=== PATIENT | male | born 1990 | race Caucasian/White ===

== ENCOUNTER 2016-11-13 19:41 | Inpatient (IN) | payer OTHER ==
[2016-11-13 20:24] VITALS: BMI 17.8
--- NOTE | 2016-11-13 20:32 | HP ---
COWS - Scale Resting Pulse: 1= [place] 81-100 Sweatin=Flushed/Facial Moisture Restless Observation: 3= Extraneous Movement Pupil Size: 1= Pupils >than Normal Bone or Joint Aches: 4=Acute Joint/Muscle Pain Runny Nose/ Eye Tearin= Nasal Congestion GI Upset > 30mins: 1= Stomach Cramp Tremor Observation: 2= Slight Tremor Visible Yawning Observation: 0= None Anxiety or Irritability: 2=Irritable/Anxious Goose Flesh Skin: 0=Smooth Skin COWS Score: 17 CIWA Score - CIWA Score Nausea/Vomitin Muscle Tremors: 4-Moderate,w/Arms Extend Anxiety: 4-Mod. Anxious/Guarded Agitation: 4-Moderately Restless Paroxysmal Sweats: 3 Orientation: 1-Uncertain about Date Tacttile Disturbances: 0-None Auditory Disturbances: 0-None Visual Disturbances: 0-None Headache: 0-None Present CIWA-Ar Total Score: 19 Admission ROS BHS - HPI Chief Complaint: C/O WITHDRAWALS SX'S. SEEKING DETOX TXMENT Allergies/Adverse Reactions: Allergies Allergy/AdvReac Type Severity Reaction Status Date / Time No Known Allergies Allergy Verified 11/13/16 20:26 History of Present Illness: 26 Y.O. MALE WITH POLYSUBSTANCE ABUSE ADMITTED FOR DETOX TXMENT. HE IS CURRENTLY USING HEROIN, XANA, THC. REPORTS LONGEST CLEAN TIME IS 1 YEAR. HE HAS BEEN INFORMED HIS APPROX LOS WILL BE 7 DAYS . HE HAS AGREED TO COMPLETE. Exam Limitations: No Limitations - Ebola screening Have you traveled outside of the country in the last 21 days: No (N) Have you had contact with anyone from an Ebola affected area: No Have you been sick,other than usual withdrawal symptoms: No Do you have a fever: No - Review of Systems Constitutional: Chills, Loss of Appetite, Malaise, Night Sweats, Unintentional Wgt. Loss EENT: reports: Other (NASAL CONGESTION) Respiratory: reports: No Symptoms reported Cardiac: reports: No Symptoms Reported GI: reports: Nausea, Poor Appetite, Poor Fluid Intake, Abdominal cramping : reports: No Symptoms Reported Musculoskeletal: reports: Back Pain Integumentary: reports: Other (L HAND FX OF MIDDLE AND RING FINGER. PRESENTLY WITH SLIPNT AND CDD. WAS SEEN AND TREATED IN AN URGENT CARE. HAS F/U ON 12/08/16) Neuro: reports: No Symptoms reported Endocrine: reports: No Symptoms Reported Hematology: reports: No Symptoms Reported Psychiatric: reports: Anxious Other Systems: Reviewed and Negative Patient History - Patient Medical History Hx Anemia: No Hx Asthma: No Hx Chronic Obstructive Pulmonary Disease (COPD): No Hx Cancer: No Hx Cardiac Disorders: No Hx Congestive Heart Failure: No Hx Hypertension: No Hx Hypercholesterolemia: No Hx Pacemaker: No HX Cerebrovascular Accident: No Hx Seizures: No Hx Dementia: No Hx Diabetes: No Hx Gastrointestinal Disorders: Yes (IBS) Hx Liver Disease: No Hx Genitourinary Disorders: No Hx Sexually Transmitted Disorders: No Hx Renal Disease (ESRD): No Hx Thyroid Disease: No Hx Human Immunodeficiency Virus (HIV): No Hx Hepatitis C: No Hx Depression: No Hx Suicide Attempt: No Hx Bipolar Disorder: No Hx Schizophrenia: No Other Medical History: SCOLIOSIS - Patient Surgical History Past Surgical History: No - PPD History Previous Implant?: Yes Documented Results: Negative w/o proof Implanted On Prior [facility] Admission?: No PPD to be Administered?: Yes - Smoking Cessation Smoking history: Current every day smoker Have you smoked in the past 12 months: Yes Aproximately how many cigarettes per day: 20 Cigars Per Day: 0 Hx Chewing Tobacco Use: No Initiated information on smoking cessation: Yes 'Breaking Loose' booklet given: 11/13/16 - Substance & Tx. History Hx Alcohol Use: No Hx Substance Use: Yes Substance Use Type: Heroin, Marijuana, Opiates (OXY), Tranquilizers (XANAX) Hx Substance Use Treatment: Yes ([facility]) - Substances Abused HEROIN Route: Injection Frequency: Daily Amount used: 20 Age of first use: 23 Date of Last Use: 11/13/16 XANAX Route: Oral Frequency: 1-2 times per week Amount used: 2MG Age of first use: 18 Date of Last Use: 11/13/16 THC Route: Smoking Frequency: Daily Amount used: 3 JOINTS Age of first use: 16 Date of Last Use: 11/12/16 Family Disease History - Family Disease History Family Disease History: Other: Father (RECOVERING ETOH) Admission Physical Exam BHS - Vital Signs Vital Signs: Vital Signs - 24 hr 11/13/16 20:21 Temperature 97.7 F Pulse Rate 84 Respiratory 18 Rate Blood Pressure 119/66 - Physical General Appearance: Yes: Appropriately Dressed, Mild Distress, Tremorous, Anxious HEENTM: Yes: EOMI, Normocephalic, Normal Voice, ALEC, Pharynx Normal Respiratory: Yes: Chest Non-Tender, Lungs Clear, Normal Breath Sounds, No Respiratory Distress, No Accessory Muscle Use Neck: Yes: No masses,lesions,Nodules, Supple, Trachea in good position Breast: Yes: Breast Exam Deferred Cardiology: Yes: Regular Rhythm, Regular Rate, S1, S2 Abdominal: Yes: Normal Bowel Sounds, Non Tender, Flat, Soft Genitourinary: Yes: Within Normal Limits Back: Yes: Normal Inspection Musculoskeletal: Yes: full range of Motion, Gait Steady Extremities: Yes: Normal Capillary Refill, Normal Range of Motion, Non-Tender, Tremors Neurological: Yes: scientific research manager II-XII NML intact, Alert, Motor Strength 5/5 Integumentary: Yes: Normal Color, Warm, Moist Lymphatic: Yes: Within Normal Limits - Diagnostic (1) Opioid dependence with withdrawal Current Visit: Yes Status: Chronic (2) Sedative, hypnotic or anxiolytic dependence with withdrawal, uncomplicated Current Visit: Yes Status: Chronic (3) Cannabis dependence, uncomplicated Current Visit: Yes Status: Chronic (4) Nicotine dependence Current Visit: Yes Status: Chronic Qualifiers: Nicotine product type: cigarettes Substance use status: uncomplicated Qualified Code(s): F17.210 - Nicotine dependence, cigarettes, uncomplicated (5) IBS (irritable bowel syndrome) Current Visit: Yes Status: Chronic Qualifiers: Irritable bowel syndrome type: without diarrhea Qualified Code(s): K58.9 - Irritable bowel syndrome without diarrhea (6) Scoliosis Current Visit: Yes Status: Chronic Cleared for Admission [facility] - Detox or Rehab [facility] Level of Care: Medically Managed Detox Regimen/Protocol: Methadone/Valium [facility] Breath Alcohol Content Breath Alcohol Content: 0 Urine Drug Screen - Results Drug Screen Negative: No Urine Drug Screen Results: THC-Marijuana, OPI-Opiates, BZO-Benzodiazepines, OXY- Oxycodone
[2016-11-13] MEDS ORDERED: P-EPHED 60MG/TRIPROLIDI 2.5MG TABLET PO PRN (20:47)
[2016-11-13] MEDS ORDERED: guaiFENesin/D-METHORPHAN HB 10 ML UNIT-DOSE CUPS PO PRN (20:47)
[2016-11-13] MEDS ORDERED: METHADONE HCL 10 MG TABLET (FOR DETOX USE ONLY) PO ONE ×2 (20:47→23:00)
[2016-11-13] MEDS ORDERED: MAGNESIUM CITRATE 300 ML BOTTLE PO PRN (20:47)
[2016-11-13] MEDS ORDERED: NICOTINE POLACRILEX 2 MG GUM BC PRN (20:47)
[2016-11-13] MEDS ORDERED: ACETAMINOPHEN 325 MG TABLET (FP) PO PRN (20:47)
[2016-11-13] MEDS ORDERED: MAG HYDROX/AL HYDROX/SIMETH 30 ML UNIT-DOSE CUP PO PRN (20:47)
[2016-11-13] MEDS ORDERED: MAGNESIUM HYDROX 2400MG/30ML ORAL SUSPENSION 30 ML CUP PO PRN (20:47)
[2016-11-13] MEDS ORDERED: LOPERAMIDE HCL 2 MG CAPSULE PO PRN (20:47)
[2016-11-13] MEDS ORDERED: hydrOXYzine PAMOATE 50 MG CAPSULE (FP) PO PRN (20:47)
[2016-11-13] MEDS ORDERED: diazePAM 5 MG TABLET PO ONE (20:47)
[2016-11-13] MEDS ORDERED: MENTHOL/PHENOL 1 EACH UD MM PRN (20:47)
[2016-11-13] MEDS ORDERED: IBUPROFEN 400 MG TABLET (FP) PO PRN (20:47)
[2016-11-13] MEDS: diazePAM 5 MG TABLET PO SCH (21:54)
[2016-11-13] MEDS: THIAMINE HCL 100 MG TABLET (FP) PO SCH (21:56)
[2016-11-13] MEDS: NICOTINE 21 MG/24 HOURS TOPICAL PATCH TD SCH (22:00)
[2016-11-14] MEDS: diazePAM 5 MG TABLET PO SCH ×3 (06:11→22:26)
[2016-11-14] MEDS: diazePAM 5 MG TABLET PO PRN ×2 (08:45→17:32)
[2016-11-14 09:59] LABS: MCHC 33.8 g/dl (32.0-35.9); MEAN CELL VOLUME 88.7 fl (80-96); MEAN PLT VOLUME 7.7 fl (7.5-11.1); PLATELET COUNT 294 K/MM3 (134-434); RDW 13.4 % (11.9-15.9); WHITE BLOOD COUNT 7.7 K/mm3 (4.0-10.0)
[2016-11-14 10:00] LABS: ALBUMIN 3.9 g/dl (3.4-5.0); ANION GAP 7 (8-16); CO2 30 mmol/L (21-32); GLUCOSE,RANDOM 97 mg/dL (74-106)
[2016-11-14] MEDS ORDERED: METHADONE HCL 10 MG TABLET (FOR DETOX USE ONLY) PO SCH (10:00)
[2016-11-14 10:04] LABS: ALK PHOS 65 U/L (45-117); BILIRUBIN,TOTAL 0.3 mg/dL (0.2-1.0); CREATININE 0.9 mg/dL (0.7-1.3); SGOT/AST 13 U/L (15-37); SGPT/ALT 21 U/L (12-78); TOT PROT 6.5 g/dl (6.4-8.2)
[2016-11-14] MEDS: NICOTINE 21 MG/24 HOURS TOPICAL PATCH TD SCH (10:20)
[2016-11-14] MEDS: PRENATAL VITAMINS W/ FOLIC ACID TABLET (FP) PO SCH (10:20)
--- NOTE | 2016-11-14 10:26 | PN ---
[facility] CIWA - CIWA Score Nausea/Vomitin-Mild Nausea/No Vomiting Muscle Tremors: 4-Moderate,w/Arms Extend Anxiety: 4-Mod. Anxious/Guarded Agitation: 4-Moderately Restless Paroxysmal Sweats: 3 Orientation: 0-Oriented Tacttile Disturbances: 0-None Auditory Disturbances: 0-None Visual Disturbances: 0-None Headache: 0-None Present CIWA-Ar Total Score: 16 BHS COWS - Scale Resting Pulse: 1= [place] 81-100 Sweatin=Flushed/Facial Moisture Restless Observation: 1= Difficult to Sit Still Pupil Size: 1= Pupils >than Normal Bone or Joint Aches: 2= Severe Diffuse Aches Runny Nose/ Eye Tearin= Runny Nose/Eyes GI Upset > 30mins: 2= Nausea/Diarrhea Tremor Observation of Outstretched Hands: 2= Slight Tremor Visible Yawning Observation: 1= 1-2x During Session Anxiety or Irritability: 2=Irritable/Anxious Goose Flesh Skin: 0=Smooth Skin COWS Score: 16 S Progress Note (SOAP) Subjective: Anxiety,tremors,sweating,interrupted sleep,restless Objective: 11/14/16 10:27 Last Vital Signs Temp Pulse Resp BP Pulse Ox 97.4 F L 97 H 18 108/68 11/14/16 10:07 11/14/16 10:07 11/14/16 10:07 11/14/16 10:07 Laboratory Tests 11/14/16 11/14/16 07:00 07:00 WBC 7.7 RBC 4.48 Hgb 13.4 Hct 39.7 MCV 88.7 MCHC 33.8 RDW 13.4 Plt Count 294 MPV 7.7 Sodium 141 Potassium 4.1 Chloride 104 Carbon Dioxide 30 Anion Gap 7 L BUN 14 Creatinine 0.9 Creat Clearance w eGFR > 60 Random Glucose 97 Calcium 9.0 Total Bilirubin 0.3 AST 13 L ALT 21 Alkaline Phosphatase 65 Total Protein 6.5 Albumin 3.9 labs noted Assessment: 11/14/16 10:28 withdrawal sx Plan: continue detox
[2016-11-14 10:46] LABS: HIV 1 & 2 AB NEGATIVE; HIV 1 AGp24 NEGATIVE
--- NOTE | 2016-11-14 11:59 | EKG ---
Test Reason : Blood Pressure : / mmHG Vent. Rate : 074 BPM Atrial Rate : 074 BPM P-R Int : 146 ms QRS Dur : 094 ms QT Int : 368 ms P-R-T Axes : 071 089 069 degrees QTc Int : 408 ms NORMAL SINUS RHYTHM WITH SINUS ARRHYTHMIA INCOMPLETE RIGHT BUNDLE BRANCH BLOCK NONSPECIFIC ST ABNORMALITY ABNORMAL ECG WHEN COMPARED WITH ECG OF 13-NOV-2016 21:28, NO SIGNIFICANT CHANGE FROM PREVIOUS EKG Confirmed by STEPH SANTORO MD ([id number]) on 11/14/2016 11:59:20 AM Referred By: Confirmed By:STEPH SANTORO MD
--- NOTE | 2016-11-14 12:02 | EKG ---
Test Reason : Blood Pressure : / mmHG Vent. Rate : 077 BPM Atrial Rate : 077 BPM P-R Int : 136 ms QRS Dur : 096 ms QT Int : 368 ms P-R-T Axes : 076 088 061 degrees QTc Int : 416 ms BASELINE ARTIFACT OTHERWISE NORMAL ECG NO PREVIOUS ECGS AVAILABLE Confirmed by STEPH SANTORO MD ([id number]) on 11/14/2016 12:01:51 PM Referred By: Confirmed By:STEPH SANTORO MD
[2016-11-14 20:29] LABS: URINE APPEARANCE CLEAR; URINE BILIRUBIN NEGATIVE (NEGATIVE); URINE BLOOD NEGATIVE (NEGATIVE); URINE COLOR YELLOW; URINE GLUCOSE (UA) NEGATIVE (NEGATIVE); URINE KETONE NEGATIVE (NEGATIVE); URINE LEUK ESTERASE NEGATIVE (NEGATIVE); URINE NITRITE NEGATIVE (NEGATIVE); URINE PROTEIN NEGATIVE (NEGATIVE); URINE UROBILINOGEN NEGATIVE E.U./dl (0.2-1.0)
[2016-11-14] MEDS: THIAMINE HCL 100 MG TABLET (FP) PO SCH (22:26)
[2016-11-14] MEDS: diphenhydrAMINE HCL 50 MG CAPSULE PO PRN (22:27)
[2016-11-15] MEDS: diazePAM 5 MG TABLET PO PRN ×3 (05:43→18:11)
[2016-11-15] MEDS: PRENATAL VITAMINS W/ FOLIC ACID TABLET (FP) PO SCH (10:25)
[2016-11-15] MEDS: NICOTINE 21 MG/24 HOURS TOPICAL PATCH TD SCH (10:26)
[2016-11-15] MEDS: METHADONE HCL 5 MG TABLET (FOR DETOX USE ONLY) PO SCH (10:26)
[2016-11-15] MEDS: diazePAM 5 MG TABLET PO SCH ×2 (10:26→22:22)
--- NOTE | 2016-11-15 10:47 | EKG ---
Test Reason : Blood Pressure : / mmHG Vent. Rate : 068 BPM Atrial Rate : 068 BPM P-R Int : 150 ms QRS Dur : 094 ms QT Int : 380 ms P-R-T Axes : 069 086 069 degrees QTc Int : 404 ms NORMAL SINUS RHYTHM WITH SINUS ARRHYTHMIA EARLY REPOLARIZATION NORMAL ECG WHEN COMPARED WITH ECG OF 13-NOV-2016 22:06, NO SIGNIFICANT CHANGE WAS FOUND Confirmed by JOHN OSMAN MD ([id number]) on 11/15/2016 10:47:42 AM Referred By: Confirmed By:JOHN OSMAN MD
--- NOTE | 2016-11-15 11:03 | PN ---
[facility] CIWA - CIWA Score Nausea/Vomitin-No Nausea/No Vomiting Muscle Tremors: 4-Moderate,w/Arms Extend Anxiety: 4-Mod. Anxious/Guarded Agitation: 4-Moderately Restless Paroxysmal Sweats: 1-Minimal Palms Moist Orientation: 0-Oriented Tacttile Disturbances: 3-Moderate Itch/Numb/Burn Auditory Disturbances: 0-None Visual Disturbances: 0-None Headache: 0-None Present CIWA-Ar Total Score: 16 S COWS - Scale Resting Pulse: 1= [place] 81-100 Sweatin= Chills/Flushing Restless Observation: 3= Extraneous Movement Pupil Size: 2= Moderately Dilated Bone or Joint Aches: 4=Acute Joint/Muscle Pain Runny Nose/ Eye Tearin= Nasal Congestion GI Upset > 30mins: 1= Stomach Cramp Tremor Observation of Outstretched Hands: 1= Tremor [place], Not Seen Yawning Observation: 1= 1-2x During Session Anxiety or Irritability: 2=Irritable/Anxious Goose Flesh Skin: 0=Smooth Skin COWS Score: 17 [facility] Progress Note (SOAP) Subjective: ANXIETY,SWEATS, "SORE MUSCLES'. Objective: 11/15/16 11:05 Vital Signs Temperature 95.7 F L 11/15/16 09:46 Pulse Rate 85 11/15/16 09:46 Respiratory Rate 18 11/15/16 09:46 Blood Pressure 114/69 11/15/16 09:46 O2 Sat by Pulse Oximetry (%) Laboratory Last Values WBC 7.7 K/mm3 (4.0-10.0) 11/14/16 07:00 RBC 4.48 M/mm3 (4.00-5.60) 11/14/16 07:00 Hgb 13.4 GM/dL (11.7-16.9) 11/14/16 07:00 Hct 39.7 % (35.4-49) 11/14/16 07:00 MCV 88.7 fl (80-96) 11/14/16 07:00 MCHC 33.8 g/dl (32.0-35.9) 11/14/16 07:00 RDW 13.4 % (11.9-15.9) 11/14/16 07:00 Plt Count 294 K/MM3 (134-434) 11/14/16 07:00 MPV 7.7 fl (7.5-11.1) 11/14/16 07:00 Sodium 141 mmol/L (136-145) 11/14/16 07:00 Potassium 4.1 mmol/L (3.5-5.1) 11/14/16 07:00 Chloride 104 mmol/L (98-107) 11/14/16 07:00 Carbon Dioxide 30 mmol/L (21-32) 11/14/16 07:00 Anion Gap 7 (8-16) L 11/14/16 07:00 BUN 14 mg/dL (7-18) 11/14/16 07:00 Creatinine 0.9 mg/dL (0.7-1.3) 11/14/16 07:00 Creat Clearance w eGFR > 60 (>60) 11/14/16 07:00 Random Glucose 97 mg/dL (74-106) 11/14/16 07:00 Calcium 9.0 mg/dL (8.5-10.1) 11/14/16 07:00 Total Bilirubin 0.3 mg/dL (0.2-1.0) 11/14/16 07:00 AST 13 U/L (15-37) L 11/14/16 07:00 ALT 21 U/L (12-78) 11/14/16 07:00 Alkaline Phosphatase 65 U/L (45-117) 11/14/16 07:00 Total Protein 6.5 g/dl (6.4-8.2) 11/14/16 07:00 Albumin 3.9 g/dl (3.4-5.0) 11/14/16 07:00 Urine Color Yellow 11/14/16 14:30 Urine Appearance Clear 11/14/16 14:30 Urine pH 6.0 (5.0-8.0) 11/14/16 14:30 Ur Specific [place] 1.015 (1.001-1.035) 11/14/16 14:30 Urine Protein Negative (NEGATIVE) 11/14/16 14:30 Urine Glucose (UA) Negative (NEGATIVE) 11/14/16 14:30 Urine Ketones Negative (NEGATIVE) 11/14/16 14:30 Urine Blood Negative (NEGATIVE) 11/14/16 14:30 Urine Nitrite Negative (NEGATIVE) 11/14/16 14:30 Urine Bilirubin Negative (NEGATIVE) 11/14/16 14:30 Urine Urobilinogen Negative E.U./dl (0.2-1.0) 11/14/16 14:30 Ur Leukocyte Esterase Negative (NEGATIVE) 11/14/16 14:30 RPR Titer Nonreactive (NONREACTIVE) 11/14/16 07:00 HIV 1&2 Antibody Screen Negative 11/14/16 07:00 HIV P24 Antigen Negative 11/14/16 07:00 Assessment: 11/15/16 11:05 WITHDRAWAL SX Plan: CONTINUE DETOX
[2016-11-15] MEDS: CYCLOBENZAPRINE HCL 10 MG TABLET (FP) PO SCH ×2 (13:15→22:22)
[2016-11-15] MEDS: diphenhydrAMINE HCL 50 MG CAPSULE PO PRN (22:22)
[2016-11-15] MEDS: THIAMINE HCL 100 MG TABLET (FP) PO SCH (22:22)
[2016-11-16] MEDS: diazePAM 5 MG TABLET PO PRN ×2 (06:10→13:44)
[2016-11-16] MEDS: CYCLOBENZAPRINE HCL 10 MG TABLET (FP) PO SCH ×3 (06:10→22:28)
[2016-11-16] MEDS: PRENATAL VITAMINS W/ FOLIC ACID TABLET (FP) PO SCH (10:20)
[2016-11-16] MEDS: diazePAM 5 MG TABLET PO SCH ×2 (10:20→22:28)
[2016-11-16] MEDS: METHADONE HCL 5 MG TABLET (FOR DETOX USE ONLY) PO SCH (10:20)
[2016-11-16] MEDS: NICOTINE 21 MG/24 HOURS TOPICAL PATCH TD SCH (10:20)
--- NOTE | 2016-11-16 11:45 | PN ---
S Progress Note (SOAP) Subjective: ANXIETY,SWEATS,INTERMITTENT SLEEP Objective: 11/16/16 11:44 Vital Signs Temperature 96.8 F L 11/16/16 10:03 Pulse Rate 84 11/16/16 10:03 Respiratory Rate 18 11/16/16 10:03 Blood Pressure 113/68 11/16/16 10:03 O2 Sat by Pulse Oximetry (%) Laboratory Last Values WBC 7.7 K/mm3 (4.0-10.0) 11/14/16 07:00 RBC 4.48 M/mm3 (4.00-5.60) 11/14/16 07:00 Hgb 13.4 GM/dL (11.7-16.9) 11/14/16 07:00 Hct 39.7 % (35.4-49) 11/14/16 07:00 MCV 88.7 fl (80-96) 11/14/16 07:00 MCHC 33.8 g/dl (32.0-35.9) 11/14/16 07:00 RDW 13.4 % (11.9-15.9) 11/14/16 07:00 Plt Count 294 K/MM3 (134-434) 11/14/16 07:00 MPV 7.7 fl (7.5-11.1) 11/14/16 07:00 Sodium 141 mmol/L (136-145) 11/14/16 07:00 Potassium 4.1 mmol/L (3.5-5.1) 11/14/16 07:00 Chloride 104 mmol/L (98-107) 11/14/16 07:00 Carbon Dioxide 30 mmol/L (21-32) 11/14/16 07:00 Anion Gap 7 (8-16) L 11/14/16 07:00 BUN 14 mg/dL (7-18) 11/14/16 07:00 Creatinine 0.9 mg/dL (0.7-1.3) 11/14/16 07:00 Creat Clearance w eGFR > 60 (>60) 11/14/16 07:00 Random Glucose 97 mg/dL (74-106) 11/14/16 07:00 Calcium 9.0 mg/dL (8.5-10.1) 11/14/16 07:00 Total Bilirubin 0.3 mg/dL (0.2-1.0) 11/14/16 07:00 AST 13 U/L (15-37) L 11/14/16 07:00 ALT 21 U/L (12-78) 11/14/16 07:00 Alkaline Phosphatase 65 U/L (45-117) 11/14/16 07:00 Total Protein 6.5 g/dl (6.4-8.2) 11/14/16 07:00 Albumin 3.9 g/dl (3.4-5.0) 11/14/16 07:00 Urine Color Yellow 11/14/16 14:30 Urine Appearance Clear 11/14/16 14:30 Urine pH 6.0 (5.0-8.0) 11/14/16 14:30 Ur Specific [place] 1.015 (1.001-1.035) 11/14/16 14:30 Urine Protein Negative (NEGATIVE) 11/14/16 14:30 Urine Glucose (UA) Negative (NEGATIVE) 11/14/16 14:30 Urine Ketones Negative (NEGATIVE) 11/14/16 14:30 Urine Blood Negative (NEGATIVE) 11/14/16 14:30 Urine Nitrite Negative (NEGATIVE) 11/14/16 14:30 Urine Bilirubin Negative (NEGATIVE) 11/14/16 14:30 Urine Urobilinogen Negative E.U./dl (0.2-1.0) 11/14/16 14:30 Ur Leukocyte Esterase Negative (NEGATIVE) 11/14/16 14:30 RPR Titer Nonreactive (NONREACTIVE) 11/14/16 07:00 HIV 1&2 Antibody Screen Negative 11/14/16 07:00 HIV P24 Antigen Negative 11/14/16 07:00 Assessment: 11/16/16 11:44 WITHDRAWAL SX Plan: CONTINUE DETOX BENADRYL DIRECTED
[2016-11-16] MEDS: THIAMINE HCL 100 MG TABLET (FP) PO SCH (22:28)
[2016-11-16] MEDS: diphenhydrAMINE HCL 50 MG CAPSULE PO PRN (22:29)
[2016-11-17] MEDS: CYCLOBENZAPRINE HCL 10 MG TABLET (FP) PO SCH ×3 (06:01→22:23)
[2016-11-17] MEDS ORDERED: METHADONE HCL 10 MG TABLET (FOR DETOX USE ONLY) PO SCH (10:00)
[2016-11-17] MEDS ORDERED: diazePAM 5 MG TABLET PO SCH (10:00)
[2016-11-17] MEDS: PRENATAL VITAMINS W/ FOLIC ACID TABLET (FP) PO SCH (10:14)
[2016-11-17] MEDS: NICOTINE 21 MG/24 HOURS TOPICAL PATCH TD SCH (10:15)
--- NOTE | 2016-11-17 12:02 | PN ---
BHS Progress Note (SOAP) Subjective: DECREASED ANXIETY,SWEATS. Objective: 11/17/16 12:02 Vital Signs Temperature 96.3 F L 11/17/16 09:48 Pulse Rate 96 H 11/17/16 09:48 Respiratory Rate 18 11/17/16 09:48 Blood Pressure 114/71 11/17/16 09:48 O2 Sat by Pulse Oximetry (%) Assessment: 11/17/16 12:02 DECREASE WITHDRAWAL SX Plan: CONTINUE DETOX
[2016-11-17] MEDS: THIAMINE HCL 100 MG TABLET (FP) PO SCH (22:23)
[2016-11-18] MEDS: CYCLOBENZAPRINE HCL 10 MG TABLET (FP) PO SCH (05:52)
[2016-11-18] MEDS ORDERED: METHADONE HCL 5 MG TABLET (FOR DETOX USE ONLY) PO SCH (06:00)
[2016-11-18 09:34] VITALS: BP 114/69; PULSE 98; TEMP 96.7
--- NOTE | 2016-11-18 11:11 | DS ---
[facility] Detox Discharge Summary Admission Date: 11/13/16 Discharge Date: 11/18/16 - History Present History: Cannabis Dependence, Opioid Dependence, Sedative Dependence Pertinent Past History: IBS Scoliosis - Physical Exam Results Vital Signs: Vital Signs Temperature 96.7 F L 11/18/16 09:33 Pulse Rate 98 H 11/18/16 09:33 Respiratory Rate 20 11/18/16 09:33 Blood Pressure 114/69 11/18/16 09:33 O2 Sat by Pulse Oximetry (%) Pertinent Admission Physical Exam Findings: Withdrawal sx. Laboratory Tests 11/14/16 11/14/16 11/14/16 07:00 07:00 07:00 WBC 7.7 RBC 4.48 Hgb 13.4 Hct 39.7 MCV 88.7 MCHC 33.8 RDW 13.4 Plt Count 294 MPV 7.7 Sodium 141 Potassium 4.1 Chloride 104 Carbon Dioxide 30 Anion Gap 7 L BUN 14 Creatinine 0.9 Creat Clearance w eGFR > 60 Random Glucose 97 Calcium 9.0 Total Bilirubin 0.3 AST 13 L ALT 21 Alkaline Phosphatase 65 Total Protein 6.5 Albumin 3.9 Urine Color Urine Appearance Urine pH Ur Specific [place] Urine Protein Urine Glucose (UA) Urine Ketones Urine Blood Urine Nitrite Urine Bilirubin Urine Urobilinogen Ur Leukocyte Esterase RPR Titer Nonreactive HIV 1&2 Antibody Screen HIV P24 Antigen 11/14/16 11/14/16 07:00 14:30 WBC RBC Hgb Hct MCV MCHC RDW Plt Count MPV Sodium Potassium Chloride Carbon Dioxide Anion Gap BUN Creatinine Creat Clearance w eGFR Random Glucose Calcium Total Bilirubin AST ALT Alkaline Phosphatase Total Protein Albumin Urine Color Yellow Urine Appearance Clear Urine pH 6.0 Ur Specific [place] 1.015 Urine Protein Negative Urine Glucose (UA) Negative Urine Ketones Negative Urine Blood Negative Urine Nitrite Negative Urine Bilirubin Negative Urine Urobilinogen Negative Ur Leukocyte Esterase Negative RPR Titer HIV 1&2 Antibody Screen Negative HIV P24 Antigen Negative labs noted - Treatment Hospital Course: Detox Protocol Followed, Detoxed Safely, Responded well, Discharged Condition Good, Rehab Referral Accepted - Medication Discharge Medications: Ambulatory Orders NK [No Known Home Medication] 11/13/16 - Diagnosis (1) Cannabis dependence, uncomplicated Status: Chronic (2) IBS (irritable bowel syndrome) Status: Chronic Qualifiers: Irritable bowel syndrome type: without diarrhea Qualified Code(s): K58.9 - Irritable bowel syndrome without diarrhea (3) Nicotine dependence Status: Chronic Qualifiers: Nicotine product type: cigarettes Substance use status: uncomplicated Qualified Code(s): F17.210 - Nicotine dependence, cigarettes, uncomplicated (4) Opioid dependence with withdrawal Status: Acute (5) Scoliosis Status: Chronic (6) Sedative, hypnotic or anxiolytic dependence with withdrawal, uncomplicated Status: Acute - AMA Did Patient Leave Against Medical Advice: No
== END 2016-11-18 09:00 | disposition other institution (70) | DRG 773 ==
LOC: YASAS 19:41 → Y3N 20:46
PROVIDERS: ADMIT Internal Medicine; ATTEND Internal Medicine
PROC: HZ2ZZZZ Detoxification Services for Substance Abuse Treatment (ICD-10-PCS; principal; 2016-11-18)
DX: F11.23 Opioid dependence with withdrawal (principal); F13.230 Sedative, hypnotic or anxiolytic dependence with withdrawal, uncomplicated; F12.20 Cannabis dependence, uncomplicated; F17.210 Nicotine dependence, cigarettes, uncomplicated; K58.9 Irritable bowel syndrome, unspecified; M41.9 Scoliosis, unspecified
CPT/HCPCS: 36415; 80053; 81003; 85027; 86593; 87389; 93005; 93010